=== PATIENT | female | born 1935 | race Caucasian/White ===

== ENCOUNTER 2023-03-27 05:51 | Emergency (ER) | payer OTHER, MEDICARE ==
[2023-03-27 06:05] VITALS: BMI 18.5
[2023-03-27] MEDS ORDERED: ACETAMINOPHEN 1000 MG/100 ML BAG IVPB ONE (07:48)
[2023-03-27] MEDS ORDERED: ACETAMINOPHEN INJECTION 100 ML IVPB ONE (07:55)
[2023-03-27 08:11] VITALS: RESP 16
[2023-03-27 08:20] LABS: BASO % 0.7 % (0-2.0); EOS % 1.8 % (0-4.5); HEMATOCRIT 41.3 % (32.4-45.2); HEMOGLOBIN 13.9 GM/dL (10.7-15.3); LYMPH % 21.4 % (8-40); MCH 32.6 pg (25.7-33.7); MCHC 33.8 g/dl (32.0-36.0); MEAN CELL VOLUME 96.4 fl (80-96); MEAN PLT VOLUME 7.4 fl (7.5-11.1); NEUT % 66.1 % (42.8-82.8); PLATELET COUNT 356 10^3/uL (134-434); RBC 4.28 M/mm3 (3.60-5.2); RDW 13.3 % (11.6-15.6); WHITE BLOOD COUNT 7.6 K/mm3 (4.0-10.0)
[2023-03-27 08:33] LABS: ALBUMIN 3.6 g/dl (3.4-5.0); BLOOD UREA NITROGEN 19.7 mg/dL (7-18); CALCIUM 8.8 mg/dL (8.5-10.1)
[2023-03-27 08:36] LABS: CREATININE 0.8 mg/dL (0.55-1.3)
[2023-03-27 08:38] LABS: BILIRUBIN,TOTAL 0.4 mg/dL (0.2-1); TOT PROT 6.3 g/dl (6.4-8.2)
[2023-03-27 10:58] VITALS: BP 167/66; PULSE 80; TEMP 97.9
== END 2023-03-27 10:59 | disposition home or self-care (01) ==
LOC: JER 05:51
PROC: 3E033NZ Introduction of Analgesics, Hypnotics, Sedatives into Peripheral Vein, Percutaneous Approach (ICD-10-PCS; principal; 2023-03-27)
DX: M54.42 Lumbago with sciatica, left side (principal)
CPT/HCPCS: 36415; 72131-TC; 72170-TC-FY; 73502-TC-LT-FY; 73700-TC-RT; 80053; 85025; 99285-25

== ENCOUNTER 2023-05-29 10:24 | Emergency (ER) | payer OTHER, MEDICARE ==
[2023-05-29 10:49] VITALS: TEMP 97.7; BMI 18.8
[2023-05-29 12:54] VITALS: BP 188/77; PULSE 88; RESP 18
[2023-05-29 14:39] LABS: HEMATOCRIT 43.9 % (32.4-45.2); MCH 33.1 pg (25.7-33.7); MCHC 34.2 g/dl (32.0-36.0); MEAN PLT VOLUME 8.2 fl (7.5-11.1); PLATELET COUNT 274.3 10^3/uL (134-434); RBC 4.53 10^6/uL (3.60-5.2); RDW 13.1 % (11.6-15.6); WHITE BLOOD COUNT 8.9 10^3/uL (4.0-10.8)
[2023-05-29 16:24] LABS: PLATELET ESTIMATE ADEQUATE
[2023-05-29 16:48] LABS: ALBUMIN 4.2 g/dl (3.4-5.0); BLOOD UREA NITROGEN 15.9 mg/dL (7-18); CALCIUM 9.9 mg/dL (8.5-10.1)
[2023-05-29 16:53] LABS: BILIRUBIN,TOTAL 0.4 mg/dL (0.2-1)
[2023-05-29] MEDS ORDERED: IBUPROFEN 400 MG TABLET (FP) PO ONE (16:56)
[2023-05-29] MEDS: IBUPROFEN 400 MG TABLET (FP) PO ONE (16:58)
== END 2023-05-29 18:28 | disposition home or self-care (01) ==
LOC: FER 10:24
DX: S09.90XA Unspecified injury of head, initial encounter (principal); W00.0XXA Fall on same level due to ice and snow, initial encounter; Z20.822 Contact with and (suspected) exposure to COVID-19
CPT/HCPCS: 0241U-QW; 36415; 70450-TC; 71046-TC-FY; 72125-TC; 80053; 81003; 84484; 85025; 87086; 93005; 99285-25